=== PATIENT | female | born 1950 | race Caucasian/White ===

== ENCOUNTER 2020-06-09 08:17 | Outpatient (CLI) | payer MEDICARE, BC ==
--- NOTE | 2020-06-10 09:30 | NM ---
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 Graves' disease RADIOPHARMACEUTICAL: 255 uCi I-123 administered orally FINDINGS: Planar anterior and both anterior oblique images of the thyroid gland were obtained. There is homogeneous tracer distribution to both lobes of the thyroid gland without focal cold or hot nodules. The 24-hour uptake measures 64 % (normal 10-30%). IMPRESSION: Hyperthyroid Graves' disease
== END 2020-06-09 08:18 | disposition home or self-care (01) ==
LOC: NM 08:17
PROVIDERS: ATTEND Internal Medicine
DX: E05.01 Thyrotoxicosis with diffuse goiter with thyrotoxic crisis or storm (principal)
CPT/HCPCS: 78014

== ENCOUNTER 2020-07-06 10:33 | Outpatient (CLI) | payer MEDICARE, BC ==
--- NOTE | 2020-07-06 11:37 | NM ---
Radioiodine initial treatment for Graves' disease HISTORY: Thyrotoxicosis with diffuse goiter. Thyrotoxicosis crisis. FINDINGS: The procedure, risks and alternatives, and protocol for post procedure body fluid safety we re discussed with the patient. All questions answered. Patient ingested a capsule containing 12.36 mCi iodine-131 without difficulty and was monitored in e department. IMPRESSION : Technically successful administration of radioiodine for Graves' disease treatment.
== END 2020-07-06 10:34 | disposition home or self-care (01) ==
LOC: NM 10:33
PROVIDERS: ATTEND Internal Medicine
DX: E05.00 Thyrotoxicosis with diffuse goiter without thyrotoxic crisis or storm (principal)
CPT/HCPCS: 79005; A9517 ×2

== ENCOUNTER 2022-10-13 09:54 | Outpatient (CLI) | payer MEDICARE, BC | END 2022-10-13 09:55 | disposition home or self-care (01) | LOC: BICMAMMO 09:54 | PROVIDERS: ATTEND Internal Medicine | DX: Z12.31 Encounter for screening mammogram for malignant neoplasm of breast (principal); M81.0 Age-related osteoporosis without current pathological fracture; M85.80 Other specified disorders of bone density and structure, unspecified site | CPT/HCPCS: 77063; 77067; 77080 ==

== ENCOUNTER 2022-11-13 12:19 | Outpatient (CLI) | payer OTHER | END 2022-11-13 12:20 | disposition home or self-care (01) | LOC: SCSMRI 12:19 | DX: S80.10XD Contusion of unspecified lower leg, subsequent encounter (principal); S09.93XD Unspecified injury of face, subsequent encounter; M25.561 Pain in right knee; S83.231A Complex tear of medial meniscus, current injury, right knee, initial encounter; S83.281A Other tear of lateral meniscus, current injury, right knee, initial encounter; M25.461 Effusion, right knee; M65.9 Synovitis and tenosynovitis, unspecified; M22.2X1 Patellofemoral disorders, right knee ==